=== PATIENT | female | born 1945 | race African-American/Black ===

== ENCOUNTER → 2020-03-11 | Outpatient (CLI) | payer OTHER ==
[~2020-03-11] VITALS: Ht 157.5 cm; Wt 74.2 kg
[~2020-03-11] MED LIST: GLUCOPHAGE1000 MG PO; LIPITOR40 MG PO; LISINOPRIL-HCT1 EAC2 PO
--- NOTE | 2020-03-11 13:29 | NUR ---
Pain Clinic Assessment: 1. History of Osteoarthritis: History of Rheumatoid Arthritis: ALL EXTREMITIES 2. Height: 5 ft. in. 152.4 cm. Weight: lb. oz. kg. Patient's BMI: 3. Vital Signs: BP: Pulse: Resp: Temp: 02 Sat: ECG Mon: 4. Pain Intensity: 10 5. Fall Risk: Dizziness: N Needs help standing or walking: N Fallen in the last 3 months: N Fall risk comments: 6. Patient on Blood Thinner: None 7. History of Hypertension: Y 8. Opioid Therapy greater than 6 weeks: N Opiate Contract Signed: 9. Risk Assessment Tool Provided: 0-LOW RISK 10. Functional Assessment Tool: 11. Recreational Drug Use: Never Drug Type: Tobacco Use: Never Smoker Tobacco Type: Amount or Packs/day: How Many Years: Alcohol Use: No Frequency: Quant:
[2020-03-11 13:49] VITALS: BP 125/71; BP 132/76
--- NOTE | 2020-03-23 16:00 | HPC ---
[facility] [place] [address] PAIN MANAGEMENT CONSULTATION Name: MARY ALICE CASTRO Room #: REG BRENT Krause.#: [id number] Admission: 03/11/20 Attend Phys: Waldemar Barrett MD Discharge: Date of : 43 Report #: [id number] THIS REPORT FOR: cc: Jeffery Platt David J. DO Brown, N. Wayne MD ~ CC: Jeffery Barrett DATE OF SERVICE: 03/11/2020 CHIEF COMPLAINT: Constant lumbar pain. HISTORY: The patient is a 75-year-old female who has been referred to the pain clinic for evaluation. She has had a flare up in her right lower leg. She has some history of radiculopathy. She has pain radiating down the anterior right thigh. She has tried Tylenol without significant improvement. Nonsteroidal anti-inflammatory medications have not been helpful either. She notes that the pain is worse with moving. She is not sure of anything that makes it better. She describes it as steady, shooting, aching, pounding and sharp. She rates it as a 10/10 at this juncture. She has not had physical therapy. She has not seen a chiropractor. She does have a history of rheumatoid arthritis. Her pain sometimes is problematic and wakes her at night. She finds it difficult to return to sleep. She has not had pain similar to this in the past per her report. ALLERGIES: AUGMENTIN AND PROMETHAZINE. CURRENT MEDICATIONS: Lipitor 40 mg, lisinopril/hydrochlorothiazide 20/25 and metformin 1000 mg. PAST MEDICAL HISTORY: History of rheumatoid arthritis since 1998 in remission, hypertension, gastritis 2005, intermittent asthma; diabetes, 03/2010; hyperlipidemia. PAST SURGICAL HISTORY: Appendectomy at age 9, total abdominal hysterectomy with BSO for dysfunctional uterine bleeding in 1979. Removal of small polyps 2005, colonoscopy and breast biopsy, 04/2015. SOCIAL HISTORY: She is retired, has not worked in 20 years. REVIEW OF SYSTEMS: Generally good health, wears glasses. LABORATORY DATA: 1. MRI of the lumbar spine dated 03/01/2020, L1-L2, mild broad-based disk bulge. [facility] [address] [place] [address] PAIN MANAGEMENT CONSULTATION Name: MARY ALICE CASTRO Room #: REG [facility] [id number] Admission: 03/11/20 Attend Phys: Waldemar Barrett MD Discharge: Date of : 43 Report #: [id number] 2. L2-L3 disk bulge/osteophyte complex with mild central canal and foraminal narrowing. 3. L3-L4 disk bulge with facet arthrosis. Ligamentum flavum hypertrophy results in moderate spinal canal and left greater than right neural foraminal narrowing. 4. L4-L5 disk bulge with facet arthrosis, ligament hypertrophy results in moderate central canal stenosis and bilateral foraminal narrowing. 5. L5-S1 disk osteophyte complex and facet ligamentum hypertrophy results in moderate to severe central canal and lateral recess stenosis, right greater than left. IMPRESSION: Multilevel degenerative disc disease and facet arthropathy with spinal stenosis and foraminal encroachment. PAIN CLINIC ASSESSMENT AND PQRS: 1. History of rheumatoid arthritis, which has affected all her extremities. 2. Height 5 feet 2 inches, weight 160 pounds. 3. Vital signs: Blood pressure 134/71, heart rate 72, respiratory rate 16, room air saturation 99%. 4. Pain intensity 10/10. 5. Fall risk. The patient has not fallen in the last 3 months. 6. Blood thinner. The patient is not on a blood thinning medication. 7. Hypertension. The patient is being treated for hypertension. 8. Opioids greater than 6 weeks. 9. Risk assessment tool, low for opioid use. 10. Functional assessment tool . 11. Recreational drug use. The patient denies. 12. Tobacco: The patient has never smoked. 13. Alcohol. The patient denies frequent use of alcoholic beverages. PHYSICAL EXAMINATION: GENERAL: The patient is a well-developed, well-nourished black female, appears her stated age. She is alert and oriented x 3. Her affect is appropriate. Speech is fluent. HEENT: Normocephalic, atraumatic. Extraocular eye muscles intact. Sclerae nonicteric. Mucous membranes are moist. The patient is wearing a mask. NECK: Without JVD or bruits. HEART: Regular rate. ABDOMEN: Nontender. LUNGS: Clear to auscultation. MUSCULOSKELETAL: The patient without significant scoliosis, kyphosis or lordosis. The patient notes some increased pain and discomfort with rotation of her torso to the right. Forward bending to about 15 degrees cause significant pain and discomfort. The patient has somewhat of an antalgic gait. Left and right lateral rotation cause some discomfort in the right hip area. Anterior and posterior spring tests were negative. Palpation in the area of the [facility] [address] [place] [address] PAIN MANAGEMENT CONSULTATION Name: MARY ALICE CASTRO Room #: REG BRENT Carvalho#: [id number] Admission: 03/11/20 Attend Phys: Waldemar Barrett MD Discharge: Date of : 43 Report #: [id number] trochanteric bursa cause increased pain and discomfort. Palpation in the right side exacerbate her pain. IMPRESSION: 1. Right trochanteric bursitis. 2. History of rheumatoid arthritis since 1998 in remission. 3. Hypertension. 4. Gastritis 2005. 5. Intermittent asthma. 6. Diabetes, 03/2010. 7. Hyperlipidemia. RECOMMENDATIONS: We discussed treatment options with the patient. At this juncture, injection of the affected area with local anesthetic and steroid were discussed. Possible complications of the procedure, which could include but are not limited to infection, worsening of pain, no improvement in pain were discussed and the patient elects to proceed. PROCEDURE NOTE: The patient was taken to the procedure area. She was then assisted in getting on the examination table. She was placed in the left lateral decubitus position. The right hip was in the upward position. Fluoroscopy was then used. Palpation in the area of the greater trochanteric bursa cause reproduction of her discomfort. A 25-gauge needle was then used to make a skin wheal. A 20-gauge spinal needle was then used to identify the greater trochanteric bursa. Aspiration was negative. A total of 10 mL of 0.5% bupivacaine and 40 mg of triamcinolone was injected. The patient's pain decreased from 10-0 at the time of discharge. She will follow up in the future as needed. The patient will monitor her blood sugars. We would like to thank you for letting us participate in her care. We hope she continues to improve. <ELECTRONICALLY SIGNED> By: Waldemar Barrett MD 03/23/20 [id number] MD NORAH Ross
== END | disposition home or self-care (01) ==
LOC: PAIN 06:50
PROVIDERS: ATTEND Anesthesiology Pain Medicine
DX: M70.61 Trochanteric bursitis, right hip (principal); M54.5 Low back pain; I10 Essential (primary) hypertension; E11.9 Type 2 diabetes mellitus without complications; E78.5 Hyperlipidemia, unspecified; J45.909 Unspecified asthma, uncomplicated; Z98.890 Other specified postprocedural states; Z79.899 Other long term (current) drug therapy; Z90.49 Acquired absence of other specified parts of digestive tract; Z90.710 Acquired absence of both cervix and uterus; Z88.8 Allergy status to other drugs, medicaments and biological substances

== ENCOUNTER → 2021-03-22 | Outpatient (CLI) | payer OTHER ==
[2021-03-24 09:08] LABS: ANTI-DNA SCREEN 11 IU/mL (0-9)
== END ==
LOC: MRI 08:39
PROVIDERS: ATTEND Psychiatry & Neurology Neuromuscular Medicine
DX: R41.3 Other amnesia (principal); F41.9 Anxiety disorder, unspecified